=== PATIENT | male | born 2005 | race Caucasian/White ===

== ENCOUNTER → 2024-11-13 14:51 | Outpatient (REF) | payer BC, SELFPAY | LOC: HWRAD 14:51 | PROVIDERS: ATTENDING PHYSICIAN Surgery; FAMILY PHYSICIAN Nurse Practitioner Family | DX: N50.9 Disorder of male genital organs, unspecified (principal) | CPT/HCPCS: 76870; 93976 ==

== ENCOUNTER 2025-05-01 06:22 | Day surgery (SDC) | payer BC, SELFPAY ==
[2025-05-01] VITALS (9 sets, daily range): BP systolic 111–134; BP diastolic 69–84; BMI 20.4
[2025-05-01] MEDS: NORMOSOL-R/PLASMALYTE-A 1000 IV (07:58)
== END 2025-05-01 12:00 | disposition home or self-care (01) ==
LOC: SDS 06:22
PROVIDERS: ATTENDING PHYSICIAN Surgery
DX: Q55.8 Other specified congenital malformations of male genital organs (principal)
CPT/HCPCS: 55175; 54300